=== PATIENT | female | born 1945 | race Caucasian/White ===

== ENCOUNTER 2019-09-16 14:14 | Outpatient (CLI) | payer OTHER, SELFPAY | END 2019-09-16 14:15 | disposition home or self-care (01) | LOC: ANHAUDIO 14:16 | PROVIDERS: PCP Family Medicine Adolescent Medicine; Visit Provider Family Medicine Adolescent Medicine | DX: R42 Dizziness and giddiness (principal); H93.11 Tinnitus, right ear; H90.3 Sensorineural hearing loss, bilateral | CPT/HCPCS: 92557; 92567 ==

== ENCOUNTER → 2020-05-31 11:47 | Outpatient (CLI) | payer OTHER, SELFPAY ==
--- NOTE | ~2020-05-31 | XR_ITS ---
EXAMINATION: XR thoracic spine 3V DATE: 05/31/2020 12:07 INDICATION: Mid back pain after fall. TECHNIQUE: 3 views of thoracic spine were obtained. COMPARISON: Chest CT 06/08/2018 FINDINGS: There is 10 degrees levoscoliosis of thoracolumbar spine. There is kyphosis of thoracic spi ne. There is a chronic burst fracture of T12 with 4/5 loss of height. There is mild chronic anterior wedging of T6, T7, and T8 vertebral bodies. There is decreased disc height at multiple levels, severe from T5-T6 through T9-T10. IMPRESSION: 1. Severe thoracic spondylosis. 2. Thoracolumbar levoscoliosis. Reviewed, dictated and finalized at location A.
== END ==
PROVIDERS: PCP Family Medicine Adolescent Medicine; Visit Provider Physician Assistant
DX: M47.813 Spondylosis without myelopathy or radiculopathy, cervicothoracic region (principal); S22.081A Stable burst fracture of T11-T12 vertebra, initial encounter for closed fracture
CPT/HCPCS: 72072

== ENCOUNTER → 2020-07-26 13:37 | Outpatient (CLI) | payer OTHER, SELFPAY ==
--- NOTE | ~2020-07-26 | MR_ITS ---
EXAMINATION: MR brain/brain stem wo con DATE: 07/26/2020 14:16 INDICATION: Dizziness. Short-term memory change. TECHNIQUE: Magnetic resonance imaging (MRI) of the brain and brainstem was performed without intraven ous contrast. Sequences included sagittal and axial T1-weighted FSE, axial diffusion-weighted FS EPI, axial T2*-weighted GRE, axial T2-weighted FLAIR Propeller, and axial T2-weighted Propeller. Apparent diffusion coefficient (ADC) maps were created. COMPARISON: None. FINDINGS: There is diffuse brain volume loss. There are old lacunar infarcts in the bilateral basal g anglia. There is no intracranial hemorrhage, acute infarction, or abnormal intracranial mass lesion. There are scattered areas of nonspecific increased T2-weighted signal intensity in the cerebral white matter. The ventricles are normal in size. There is mucosal thickening in the paranasal sinuses. The re are likely changes of ocular lens replacement surgeries. There is a right otomastoid effusion. IMPRESSION: 1. 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 2. Moderate nonspecific cerebral white matter disease, which likely represents chronic small vessel i schemic disease. Reviewed, dictated and finalized at location B. IMPRESSION: 1. 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 2. Moderate nonspecific cerebral white matter disease, which likely represents chronic small vessel ischemic disease.
== END ==
PROVIDERS: PCP Family Medicine Adolescent Medicine; Visit Provider Physician Assistant
DX: R42 Dizziness and giddiness (principal); R41.3 Other amnesia; R93.0 Abnormal findings on diagnostic imaging of skull and head, not elsewhere classified
CPT/HCPCS: 70551

== ENCOUNTER → 2021-02-26 13:45 | Outpatient (CLI) | payer OTHER, SELFPAY ==
--- NOTE | ~2021-02-26 | XR_ITS ---
EXAMINATION: XR thoracic spine 3V, XR lumbar spine 2-3V DATE: 02/26/2021 14:13 INDICATION: Mid back pain post fall TECHNIQUE: 1. Supine AP, lateral and lateral swimmer's views of the thoracic spine were obtained. 2. Supine AP, lateral and coned-down lateral lumbosacral views of the lumbar spine were obtained. COMPARISON: 05/31/2020 FINDINGS: Thoracic spine: Moderate to severe cervical spondylosis. Mild thoracic kyphosis. Unchanged T12 burst fracture with 75 % anterior to central vertebral body height loss. Interval progression of a T6 compression fracture p reviously with 20% and now 40% anterior vertebral body height loss. Unchanged minimal anterior wedgin g at T8. Moderate to severe disc height loss at multiple levels in the mid to lower thoracic spine wi th likely developing fusion at T9-T10. Coarse peripheral reticular opacities at the bilateral lungs c onsistent with nonspecific interstitial pneumonia (NSIP) pattern chronic interstitial lung disease. H eart size is normal. Dense mitral annular calcification. Lumbar spine: Mild thoracolumbar levocurvature. 2 mm anterolisthesis L4 on L5. Age-indeterminate inferior endplate compression fracture at L2 with 20% central to anterior vertebral body height loss. Severe disc heigh t loss at L3-L4 and L5-S1. Sacral arches are intact. Mild bilateral sacral erect osteoarthritis. Mode rate to severe lumbar facet osteoarthritis. Atherosclerotic abdominal aorta. IMPRESSION: 1. A few thoracic and lumbar compression fractures one of which with 20% vertebral body height loss a t L2 is age-indeterminate with no prior imaging and the second at T6 with progression from 20% to now 40% anterior vertebral body height loss since the prior study on 05/31/2020. 2. Moderate to severe spondylosis of the cervical, thoracic and lumbar spine. 3. Bilateral peripheral NSIP pattern chronic interstitial lung disease. Reviewed, dictated and finalized at location H. [employer] LEADER IMPRESSION: 1. A few thoracic and lumbar compression fractures one of which with 20% verteb ral body height loss at L2 is age-indeterminate with no prior imaging and the s econd at T6 with progression from 20% to now 40% anterior vertebral body height loss since the prior study on 05/31/2020. 2. Moderate to severe spondylosis of the cervical, thoracic and lumbar spine. 3. Bilateral peripheral NSIP pattern chronic interstitial lung disease.
== END ==
PROVIDERS: PCP Family Medicine Adolescent Medicine; Visit Provider Family Medicine Adolescent Medicine
DX: S22.000A Wedge compression fracture of unspecified thoracic vertebra, initial encounter for closed fracture (principal); S32.000A Wedge compression fracture of unspecified lumbar vertebra, initial encounter for closed fracture; X58.XXXA Exposure to other specified factors, initial encounter; M47.892 Other spondylosis, cervical region; M47.894 Other spondylosis, thoracic region; M47.896 Other spondylosis, lumbar region
CPT/HCPCS: 72072; 72100

== ENCOUNTER → 2022-04-26 15:19 | Outpatient (CLI) | payer OTHER, SELFPAY ==
--- NOTE | ~2022-04-26 | MM_ITS ---
EXAMINATION: MM screening daniele BI w reta HISTORY: Screening mammogram TECHNIQUE: Craniocaudal and mediolateral oblique 3-D tomosynthesis images were obtained and synthetic 2-D images were generated. CAD analysis was submitted and interpreted. COMPARISON: 10/14/2017 bilateral screening mammogram BREAST PARENCHYMAL COMPOSITION: There are scattered areas of fibroglandular density. FINDINGS: Scattered bilateral benign calcifications. There is no evidence of suspicious mass, calcifi cation, or architectural distortion to suggest malignancy in either breast. There has been no suspici ous interval change. IMPRESSION: 1. No mammographic evidence of malignancy. 2. Recommend routine screening mammography in one year. BI-RADS Category 2: Benign finding(s). Reviewed, dictated and finalized at location A. [employer] ANALYST
== END ==
PROVIDERS: PCP Family Medicine Adolescent Medicine; Visit Provider Physician Assistant
DX: Z12.31 Encounter for screening mammogram for malignant neoplasm of breast (principal)
CPT/HCPCS: 77063; 77067

== ENCOUNTER 2023-10-06 12:07 | Outpatient (CLI) | payer OTHER, SELFPAY ==
--- NOTE | ~2023-10-06 | XR_ITS ---
Clinical Indication: Cough PA and lateral views of the chest: Comparison: 12/08/2017 Findings: Extensive interstitial disease is similar to prior exam. Cardiomediastinal silhouette is wi thin normal limits. Bones and soft tissues are unremarkable. Impression: Extensive chronic interstitial pulmonary disease. Correlate clinically for pulmonary edema or less li libby, pneumonia. Reviewed, dictated and finalized at [facility]. Impression: Extensive chronic interstitial pulmonary disease. Correlate clinically for pulm onary edema or less likely, pneumonia.
== END 2023-10-06 12:08 ==
LOC: MICIMG 12:09
PROVIDERS: PCP Family Medicine Adolescent Medicine; Visit Provider Nurse Practitioner Family
DX: J84.9 Interstitial pulmonary disease, unspecified (principal); R91.8 Other nonspecific abnormal finding of lung field
CPT/HCPCS: 71046

== ENCOUNTER 2024-06-02 15:32 | Outpatient (CLI) | payer OTHER, SELFPAY ==
--- NOTE | ~2024-06-02 | XR_ITS ---
XR chest 2V 06/02/2024 15:48 Indication: Cough Procedure: 2 view chest Comparison: Comparison to multiple prior studies sequentially, with oldest reviewed study dated 10/2017. Findings: Enlarged cardiomediastinal silhouette. Prominent right peritracheal soft tissue, suspicious for lymphadenopathy. Chronic coarse interstitial infiltrates, consistent with interstitial lung dise ase. There are coarse mitral annular calcifications. No significant effusion or pneumothorax. No acut e osseous abnormality. Impression: 1: Chronic coarse interstitial infiltrates, compatible with chronic interstitial lung disease. 2: Prominent right peritracheal soft tissue, suspicious for lymphadenopathy. Consider correlation wit h contrast-enhanced CT chest. Reviewed, dictated and finalized at location A. Impression: 1: Chronic coarse interstitial infiltrates, compatible with chronic interstitia l lung disease. 2: Prominent right peritracheal soft tissue, suspicious for lymphadenopathy. Co nsider correlation with contrast-enhanced CT chest.
== END 2024-06-02 15:33 | disposition home or self-care (01) ==
LOC: MICIMG 15:32
PROVIDERS: PCP Family Medicine Adolescent Medicine; Visit Provider Family Medicine Adolescent Medicine
DX: R05.9 Cough, unspecified (principal); R91.8 Other nonspecific abnormal finding of lung field
CPT/HCPCS: 71046